=== PATIENT | female | born 1985 | race Two or more races ===

== ENCOUNTER 2021-09-30 17:01 | Emergency (ER) | payer MEDICAID, OTHER ==
[~2021-09-30] VITALS: Ht 165.1 cm; Wt 70.3 kg
[2021-09-30 19:29] VITALS: BP 111/65
== END 2021-09-30 21:43 | disposition home or self-care (01) ==
LOC: ER 17:01
DX: O26.892 Other specified pregnancy related conditions, second trimester (principal); R10.9 Unspecified abdominal pain; Z3A.19 19 weeks gestation of pregnancy; W01.0XXA Fall on same level from slipping, tripping and stumbling without subsequent striking against object, initial encounter; Y93.89 Activity, other specified; Y92.89 Other specified places as the place of occurrence of the external cause; Y99.8 Other external cause status
CPT/HCPCS: 76805